=== PATIENT | male | born 1940 | race African-American/Black ===

== ENCOUNTER 2025-09-07 08:15 | Outpatient (AMB) | payer MEDICARE, SELFPAY ==
--- OUTSIDE RECORDS SUMMARY | 2024-03-23 09:30 | XMS_ITS ---
Author Organization [facility] Address [address] [place] [address] Care Team Providers Care Digital Marketing Officer Name Role Phone Elizabeth Small MD Primary Care Provider Selin Jim [phone] Smith Encounters Encounter Location Date Provider Diagnosis [address] [address] 03/23/2024 Selin Knott Plan Of Treatment Next Appt Details Provider Name:Selin preciado, 11/18/2025 09:00:00 AM, [address] [place], [address], Progress Notes * Izaiah GARCIA CDOB:1939 (85 yo M)Acc No.[id number]:03/23/2024 Progress Note Patient: Mil MCjohnna Brito Provider: Chari Knott DPM :1940 A ge:84 Y S ex:Male Date:03/23/2024 Address:[address] [place] [address] Pcp:Elizabeth Small MD Subjective: * Chief Complaints: * [address] Smith. * Medical History: Objective: * Vitals: Assessment: Plan: * Treatment: * Images: * The named appointment provid er may or may not be the originator of this progress note, and it is not deemed complete until electronically signed by the appointment provider. Sign off status: Pending * Provider: Chari Knott DPM Date: 0 03/23/2024 Generated for Chuckie rao/Kim/Rosalia on: 1 08:20 AM EST
--- OUTSIDE RECORDS SUMMARY | 2024-04-09 04:30 | XMS_ITS ---
Author Organization [facility] Address [address] [place] [address] Care Team Providers Care Base Filler Operator Name Role Phone Geovanny HYLTON, Elizabeth Primary Care Provider Selin Jim [phone] Encounters Encounter Location Date Provider Diagnosis [address] [address] 04/09/2024 Selin Knott Plan Of Treatment Next Appt Details Provider Name:Selin preciado, 11/18/2025 09:00:00 AM, [address] [place], [address], Progress Notes * Izaiah GARCIA CDOB:1939 (85 yo M)Acc No.[id number]:04/09/2024 Progress Note Patient: Louis RODRIGUEZ Izaiah Brito Provider: Chari Knott DPM :1940 A ge:84 Y S ex:Male Date:04/09/2024 Address:[address] [place] [address] Pcp:Elizabeth Small MD Subjective: * Chief Complaints: * * Medical History: Objective: * Vitals: Assessment: Plan: * Treatment: * Images: * The named appointment provid er may or may not be the originator of this progress note, and it is not deemed complete until electronically signed by the appointment provider. Sign off status: Pending * Provider: Chari Knott DPM Date: 0 04/09/2024 Generated for Chuckie rao/Kim/Rosalia on: 1 08:19 AM EST
--- OUTSIDE RECORDS SUMMARY | 2025-07-22 04:00 | XMS_ITS ---
Author Organization [facility] Address [address] [place] [address] Care Team Providers Care Surveyor Oil Well Directional Name Role Phone Geovanny HYLTON, Elizabeth Primary Care Provider Selin Jim [phone] Encounters Encounter Location Date Provider Diagnosis [address] [address] 07/22/2025 Selin Knott Plan Of Treatment Next Appt Details Provider Name:Selin preciado, 11/18/2025 09:00:00 AM, [address] [place], [address], Progress Notes * Izaiah GARCIA CDOB:1939 (85 yo M)Acc No.[id number]:07/22/2025 Progress Note Patient: Louis RODRIGUEZ Izaiah Brito Provider: Chari Knott DPM :1940 A ge:85 Y S ex:Male Date:07/22/2025 Address:[address] [place] [address] Pcp:Elizabeth Small MD Subjective: * Chief Complaints: * * Medical History: Objective: * Vitals: Assessment: Plan: * Treatment: * Images: * The named appointment provid er may or may not be the originator of this progress note, and it is not deemed complete until electronically signed by the appointment provider. Sign off status: Pending * Provider: Chari Knott DPM Date: 09/21/2024 Generated for Chuckie rao/Kim/Rosalia on: 1 08:20 AM EST
[2025-09-07 08:20] VITALS: BP 130/80; PULSE 92; O2SAT 98; BMI 25.7
--- NOTE | 2025-09-07 08:20 | MHC.OFFWIV ---
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 Patient Tobacco Use Status: Never used Tobacco Allergies No Known Allergies Allergy (Mild, Unverified 09/07/25 08:23) N/A HPI HPI Comments History of Present Illness Details Patient is an 85yo M who presents with FB in R ear Ongoing x 1 week Uses hearing aids and lost the soft part of hearing aid Believes it is in his R ear No pain, 0/10 No other complaints PFSH Social History Patient Tobacco Use Status: Never used Tobacco Review of Systems ENT Denies ear discharge, Denies otalgia and Reports other (+ R ear FB) Physical Exam Exam Exam: General: Non-toxic, NAD. Speaking full sentences. Skin: Warm dry throughout Eye: EOMI HENT: + FB noted in R canal. Unable to see TM. L canal clear. TM non-erythematous, non-bulging. No TM perforation or hemotympanum noted. Respiratory: No respiratory distress Neurology: Alert. No aphasia or facial droop. Gait without abnormality Psych: Good mood and affect Vital Signs: Last Vital Signs Pulse 92 09/07/25 08:20 BP 130/80 09/07/25 08:20 Pulse Ox 98 09/07/25 08:20 Oxygen Delivery Method Room Air 09/07/25 08:20 BMI result Body Mass Index 25.7 Assessment & Plan Assessment & Plan (1) Ear foreign body: Code(s): T16.9XXA - Foreign body in ear, unspecified ear, initial encounter Qualifiers: Encounter type: initial encounter Laterality: right Qualified Code(s): T16.1XXA - Foreign body in right ear, initial encounter Plan: Verbal consent obtained. Tweezers used to remove white/clear hearing aid rubber peice from R canal. Canal clear. TM without erythema, perforation or bulge. Pt tolerared well without complication. (2) Cerumen impaction: Code(s): H61.20 - Impacted cerumen, unspecified ear Qualifiers: Laterality: bilateral Qualified Code(s): H61.23 - Impacted cerumen, bilateral Plan: Verbal consent obtained and curette used to remove cerumen from bilateral canals. Canals clear. Tms without trauma.Pt tolerated well without complication. Coding Level of Care Code New Pt Level 3 (50301) Diagnoses Foreign body of right ear, initial encounter T16.1XXA Encounter type: initial encounter Laterality: right Bilateral impacted cerumen H61.23 Laterality: bilateral
--- OUTSIDE RECORDS SUMMARY | 2025-09-07 08:20 | XMS_ITS | Clinical Summary ---
Author Organization [facility] Address [address] [place] [address] Phone Care Team Providers Care Project Developer Name Role Phone Elizabeth Small MD Primary Care Provider [phone] Allergies No known active allergies Medications omeprazole (PRILOSEC) 20 MG capsule Take 20 mg by mouth daily. Active allopurinol (ZYLOPRIM) 300 MG tablet Take 300 mg by mouth daily. Active amLODIPine (NORVASC) 5 MG tablet Take 5 mg by mouth daily. Active atorvastatin (LIPITOR) 20 MG tablet Take 20 mg by mouth daily. Active triamterene-hyd roCHLOROthiazid e (DYAZIDE) 37.5-25 mg per capsule Take 1 capsule by mouth every morning. Active Encounters Date Type Department Care Team Description 08/25/2025 Telephone [facility] [address] [place] [address] Anastasia Easton from Last 3 Months Social History Tobacco Use Types Packs/Day Years Used Date Smoking Tobacco: Never Smokeless Tobacco: Never Alcohol Use Standard Drinks/Week Comments Yes 7 (1 standard drink = 0.6 oz pur e alcohol) Education Answer Date Recorded Are you interested in more education? Not on bubba e 01/03/2023 Are you concerned about learning? Not on file 01/03/2023 No 01/03/2023 No 01/03/2023 Digital Access Answer Date Recorded No 02/01/2023 No 02/01/2023 No 02/01/2023 Reliable internet access at home? Not on file 02/01/2023 Device with a working camera? Not on file Sex and Gender Information Value Date Recorded Sex Assigned at Not on file Legal Sex Male 10:13 PM EDT Gender Identity Not on file Sexual Orientation Not on file Last Filed Vital Signs Vital Sign Reading Time Taken Comments Blood Pressure 108/74 11/13/2020 10:04 AM EST Pulse 86 11/13/2020 8:37 AM EST Temperature 35.8 C (96.4 F) 11/13/2020 9:48 AM EST Respiratory Rate 12 11/13/2020 8:37 AM EST Oxygen Saturation 97% 11/13/2020 10:04 AM EST Inhaled Oxygen Concentration - - Weight 93 kg (205 lb) 11/10/2020 10:01 AM EST Height 175.3 cm (5' 9 ) 11/10/2020 10:01 AM EST Body Mass Index 30.27 11/10/2020 10:01 AM EST Plan of Treatment Health Maintenance Due Date Last Done Comments Adult Td,Tdap Booster 1940 CREATININE LEVEL 1940 POTASSIUM LEVEL 1940 DEPRESSION SCREENING 1951 PNEUMOCOCCAL VACCINES (50+ years) (1 of 1 - PCV) 1989 RSV VACCINE (1 - 1-dose 75+ series) 2014 INFLUENZA VACCINE (#1) 2025 , 07/02/2019 COVID-19 VACCINE (3 - 2024-2 6 season) 2025 10/30/2020, 10/09/2020 ZOSTER VACCINES Completed 11/03/2019, 07/13/2019 HEPATITIS A VACCINES Aged Out No long er eligible based on patient's age to complete this topic HIB VACCINES Aged Out No longer eligi ble based on patient's age to complete this topic MENINGOCOCCAL VACCINES (ACWY) Aged Out No longer eligible based on patient's age to complete this topic MENINGOCOCCAL VACCINES (B) Aged Out N o longer eligible based on patient's age to complete this topic Medical Devices Implanted Type Area Merchandise Flow Associate Device Identifier Shelf Expiration Date Model / Serial / Lot Lt Knee,Rt Ankle Hardware Insurance MEDICARE PART A & B [employer] CROSS MEDEX SUPPLEMENT MEDICARE PART A & B [employer] SUPPLEMENT MEDICARE PART A & B [employer] MEDEX SUPPLEMENT MEDICARE PART A & B [employer] MEDEX SUPPLEMENT MEDICARE PART A & B [facility] MEDEX SUPPLEMENT MEDICARE PART A & B [employer] MEDEX SUPPLEMENT MEDICARE PART A & B [employer] MEDEX SUPPLEMENT MEDICARE PART A & B [employer] MEDEX SUPPLEMENT MEDICARE PART A & B [employer] MEDEX SUPPLEMENT Care Teams Project Developer Relationship Specialty Start Date End Date Elizabeth Small MD [address] [place] [phone] PCP - General Internal Medicine 10/30/20 Additional Source Comments The information contained in this document represents components of the legal health record. It is not the complete legal health record.[facility]
--- OUTSIDE RECORDS SUMMARY | 2025-09-07 08:20 | XMS_ITS ---
Author Organization Unknown ENCOUNTERS Encounter Performer Location Date Diagnosis Diagnosis Status Outpatient [address] [id number] Outpatient [address] [id number] Outpatient [address] [id number] Outpatient GENEVIEVE DELGADO MD [address] [id number] Outpatient [address] [id number] Outpatient [address] [id number] Outpatient GENEVIEVE DELGADO MD [address] [id number] Outpatient GENEVIEVE DELGADO [address] [id number] [facility] [address] [id number] [facility] [address] [id number] Outpatient [address] [id number] Outpatient [address] [address] [id number] *Note: Encounters from your own facility or health system may be excluded. Allergies, Adverse Reactions, Alerts Allergen Type Severity Identification Date Medications Name Date Quantity Days Supplied GPI Number
--- OUTSIDE RECORDS SUMMARY | 2025-09-07 08:20 | XMS_ITS | Patient Health Record ---
Author Organization [facility] [place] Address [address] [facility] [place] [address] Care Team Providers Care Mainframe Programmer Name Role Phone Elizabeth Small MD Primary Care Provider Selin iJm Unavailable [phone] Allergies No Known Allergies Reason For Referral No Information Medications Medication SIG (Take, Route, Frequency, Duration) Notes Start Date End Date Status Triamterene-HCTZ 37.5-25 MG 1 tablet in the morning Orally Once a day; Duration: 30 day(s) Active Allopurinol 300 MG 1 tablet Orally Once a day; Duration: 30 day(s) Active Atorvastatin Calcium 20 MG 1 tablet Oral ly Once a day; Duration: 30 day(s) Active amLODIPine Besylate 5 MG 1 tablet Orally Once a day; Duration: 30 day(s) Active Ciclopirox Olamine 0.77 % 1 application Externally Once a day; Duration: 30 days Active Ketoconazole 2 % 1 application Environmental Service Aide ally to bonttoms of feet Twice a day; Duration: 30 days Active PriLOSEC OTC 20 MG 1 tablet 30 minutes before morning meal Orally Once a day; Duration: 30 day(s) Active Immunizations Vaccine Route Administration Date Status Comme nts Influenza Unknown 07/13/2025 Administered Social History Tobacco Use: Social History Observation Description Date Details (start date - stop date) Never Smoker NA - NA Tobacco use other than smoking: Question Answer Notes Are you an other tobacco user? No Tobacco Control (Standard) Question Answer Notes Tobacco use: Nonsmoker Additional Findings: Tobacco non-user Current no nsmoker AUDIT-C (Standard) Question Answer Notes Did you have a drink contain ing alcohol in the past year? Yes How often did you have a dri nk containing alcohol in the past year? 2 to 3 times a week (3 points) How many drinks did you have on a typical day when you were drinking in the past year? 1 or 2 drinks (0 point) How often did you have six o r more drinks on one occasion in the past year? Never (0 point) Points 3 Interpretation Negative Vital Signs Heart Rate 83 /min 11/09/2024 Blood pressure diastolic 78 mm Hg 08/12/2025 Height 5 ft 9 in in 08/12/2025 Blood pressure systolic 120 mm Hg 08/12/2025 Weight 175 lbs 08/12/2025 BMI 25.84 kg/m2 08/12/2025 Encounters Encounter Location Date Provider Diagnosis [address] [address] 11/09/2024 Selin Perica Tinea pedis B35.3 ; Tinea unguium B35.1 ; Pain in right toe(s) M79.674 and Pain in left toe(s) M79.[address] [address] 02/08/2025 Selin Perica Pain in right toe(s) M79.674 ; Onychomycosis B35.1 and Pain in left toe(s) M79.[address] [address] 05/11/2025 Selin Perica Pain in right toe(s) M79.674 ; Onychomycosis B35.1 and Pain in left toe(s) M79.[address] [address] 08/12/2025 Selin Perica Pain in right toe(s) M79.674 ; Onychomycosis B35.1 and Pain in left toe(s) M79.675 [facility] [address] [address] 05/10/2025 Selin Perica [address] [address] 06/13/2025 Selin Perica Assessments Encounter Date Diagnosis (ICD Code) Assessment Notes Treatment Notes Treatment Clinical Notes Section Notes 11/09/2024 Tinea pedis (ICD-10 - B35.3) 02/08/2025 Pain in right toe(s) (ICD-10 - M79.674) 05/11/2025 Pain in right toe(s) (ICD-10 - M79.674) 08/12/2025 Pain in right toe(s) (ICD-10 - M79.674) 08/12/2025 Onychomycosis (ICD-10 - B35.1) 05/11/2025 Onychomycosis (ICD-10 - B35.1) 02/08/2025 Onychomycosis (ICD-10 - B35.1) 11/09/2024 Tinea unguium (ICD-10 - B35.1) 11/09/2024 Pain in right toe(s) (ICD-10 - M79.674) 02/08/2025 Pain in left toe(s) (ICD-10 - M79.675) 05/11/2025 Pain in left toe(s) (ICD-10 - M79.675) 08/12/2025 Pain in left toe(s) (ICD-10 - M79.675) 11/09/2024 Pain in left toe(s) (ICD-10 - M79.675) Plan Of Treatment Next Appt Details Provider Name:Selin preciado, 11/18/2025 09:00:00 AM, [address] [facility], [place], [address], Insurance Providers Payer Name Payer Address Payer Phone Subscriber Number Group Number Insured Name Patient Relationship to Insured Coverage Start Date Coverage End Date Medicare [facility] [address] [facility] [place] [address] [id number] Izaiah Garcia Self - patient is the insured [employer] [address] [place] [address] [phone] [id number] Izaiah Garcia Self - patient is the insured Medical (General) History Medical History History ICD Code Cancer Gout High blood pressure Joint implants/screws Transfusions Knee replacement, left Surgical History Surgery Date(Month/Year) Left Knee Replacement Screws in Right Ankle
--- OUTSIDE RECORDS SUMMARY | 2025-09-07 08:20 | XMS_ITS | Encounter Summary ---
Author Organization [facility] Address [address] [place] [address] Phone Care Team Providers Care Silver Brazer Name Role Phone Elizabeth Small MD Primary Care Provider [phone]- [phone] Encounter Details Date Type Department Care Team (Late st Contact Info) Description 11/13/2020 Procedure Pass [facility] Endoscopy Admitting Dept Virtual Department [address] [place] [address] Social History Tobacco Use Types Packs/Day Years Used Date Smoking Tobacco: Never Smokeless Tobacco: Never Alcohol Use Standard Drinks/Week Comments Yes 7 (1 standard drink = 0.6 oz pur e alcohol) Sex and Gender Information Value Date Recorded Sex Assigned at Not on file Legal Sex Male 10:13 PM EDT Gender Identity Not on file Sexual Orientation Not on file documented as of this encounter Plan of Treatment Not on file documented as of this encounter Visit Diagnoses Not on filedocumented in this encounter Care Teams Silver Brazer Relationship Specialty Start Date End Date Elizabeth Small MD [address] [place] [address] [address] [place] [address] PCP - General Internal Medicine 10/30/20 documented as of this encounter Additional Source Comments The information contained in this document represents components of the legal health record. It is not the complete legal health record.[facility]
== END 2025-09-07 09:01 | disposition home or self-care (01) ==
PROVIDERS: Visit Provider Physician Assistant
DX: T16.1XXA Foreign body in right ear, initial encounter (principal); H61.23 Impacted cerumen, bilateral

== ENCOUNTER → 2025-09-07 08:15 | Outpatient (BNVA) | payer MEDICARE, SELFPAY | PROVIDERS: Visit Provider Physician Assistant | DX: T16.1XXA Foreign body in right ear, initial encounter (principal); H61.23 Impacted cerumen, bilateral | CPT/HCPCS: 69200; 99202 ==